=== PATIENT | male | born 1940 | race Caucasian/White ===

== ENCOUNTER → 2016-12-26 17:38 | Outpatient (CLI) | payer MEDICARE ==
[~2016-12-26 17:38] MED LIST: FLUTICASONE PRO16 GM NASAL; JANTOVEN7.5 MG PO; MULTIPLE VITAMI1 TA1 PO; PERCOCET 10/3251 TA1 PO
[2017-01-25 11:13] VITALS: BMI 30.6
== END | disposition home or self-care (01) ==
LOC: D.LABREF 17:38
DX: Z96.611 Presence of right artificial shoulder joint (principal); Z11.8 Encounter for screening for other infectious and parasitic diseases

== ENCOUNTER 2017-01-18 08:00 | Outpatient (CLI) | payer MEDICARE ==
[2017-01-11 12:20] LABS: BASOPHILS 0.5 % (0.0-2.0); EOSINOPHILS 2.6 % (0-7); HEMOGLOBIN 15.3 g/dL (13.5-17.5); LYMPHOCYTES 34.7 % (15-50); MCH 31.9 pg (26.0-34.0); MCV 93.9 fL (80.0-100.0); MONOCYTES 15.2 % (2-11); PLATELET COUNT 177 10x3/uL (130-400); RBC 4.79 10x6/uL (4.20-6.10); RDW 13.4 % (11.5-14.5); WBC 4.3 10x3/uL (4.8-10.8)
[2017-01-11 12:35] LABS: COLOR YELLOW (YELLOW)
[2017-01-11 12:36] LABS: APPEARANCE HAZY (CLEAR); APTT 37.7 SECONDS (22.8-39.4); BACTERIA MANY /hpf (NONE SEEN); BILIRUBIN NEGATIVE (NEGATIVE); EPITHELIAL CELLS NSEEN /hpf (0-5); GLUCOSE NEGATIVE (NEGATIVE); INR 2.89 (0.85-1.17); KETONE NEGATIVE (NEGATIVE); LEUKOCYTE ESTERASE 1+ (NEGATIVE); MUCUS <1+ /lpf (NONE SEEN); NITRITE POSITIVE (NEGATIVE); PROTEIN NEGATIVE (NEGATIVE); PROTIME 30.5 SECONDS (11.6-15.0); RED CELLS - URINE 0-5 /hpf (0-5); UROBILINOGEN NORMAL (NORMAL)
[2017-01-11 12:38] LABS: CALC OSMOLALITY 280 mosm/kg (275-300); CARBON DIOXIDE 31.4 mmol/L (21.0-32.0); CHLORIDE - SERUM 103 mmol/L (98-107); GLUCOSE 100 mg/dL (74-106); POTASSIUM - SERUM 4.3 mmol/L (3.5-5.1); SODIUM 140 mmol/L (136-145); UREA NITROGEN 18 mg/dL (7-18); eGFR NON AFRICAN AMERICAN 77 mL/min (90-120)
[~2017-01-18 08:00] MED LIST changes: -PERCOCET 10/3251 TA1 PO
--- NOTE | 2017-01-18 09:15 | NUR ---
0810 REPORTED TO KHANG SANCHEZ NURSE PEACTITIONER OF POS NITRITES REACE OF BLOOD AND URINALYSIS RESULTS ON 01/11/17 ORDERS RECEIVED FOR URINALYSIS MIDSTREAM AND PROTIME. 0915 MIDSTREAM URINALYSIS OBTAINED AND PROTIME AND WANTS RESULTS BEFORE PROCEDING TO GET PATIENT READY AND EPLAINED TRHIS TO PATIENT AND .
[2017-01-18 09:38] LABS: APPEARANCE SLT CLOUDY (CLEAR); BILIRUBIN NEGATIVE (NEGATIVE); COLOR YELLOW (YELLOW); GLUCOSE NEGATIVE (NEGATIVE); KETONE NEGATIVE (NEGATIVE); LEUKOCYTE ESTERASE 1+ (NEGATIVE); NITRITE POSITIVE (NEGATIVE); PROTEIN NEGATIVE (NEGATIVE); RED CELLS - URINE 0-5 /hpf (0-5); UROBILINOGEN NORMAL (NORMAL); WHITE CELLS - URINE >50 /hpf (0-5)
[2017-01-18 09:39] LABS: BACTERIA MODERATE /hpf (NONE SEEN); EPITHELIAL CELLS 0-5 /hpf (0-5)
[2017-01-18 09:47] LABS: APTT 24.4 SECONDS (22.8-39.4); INR 1.18 (0.85-1.17); PROTIME 14.9 SECONDS (11.6-15.0)
--- NOTE | 2017-01-18 09:52 | NUR ---
0950 REPORTED POSITIVE NITRITES IN URINE AND REPORTED PT INR TO KHANG STEVENS SUPERVISOR INTERNATIONAL RESERVATIONS SHE STATED SHE WILL SEND ORDER TO PHARMACY FOR BACTRIM DS EVERY 12 HOURS X [address] SALCIDO CALL BACK TO BE SURE PROCEDURE IS CANCELLED AND TO WAIT TO HERE FROM DR. SALCIDO .
--- NOTE | 2017-01-18 10:21 | NUR ---
[address] SALCIDO NITRITES POSITIVE. KHANG STEVENS PIPELINE EXECUTIVE CALLED IN BACTRIM DS EVERY 12 HOURS X 5 DAYS TO [facility] ON [address] SHE GAVE ME INSTRUCTIONS TO TAKE COUMADIN TODAY AND ON 01/19/17 AND ON 01/20/17 THEN STOP COUMADIN ON 01/21/17Sunday. KHANG STEVENS STATED SURGERY TO BE ON Sunday01/25/17 AND OFFICE WILL CALL FOR TIME PER KHANG STEVENS PIPELINE EXECUTIVE AND ALSO STATED THAT [facility] WILL ALSO CALL HIM. GAVE PATIENT THIS INFORMATION AND PATIENT UPSET ABOUT LABS AND REPORTED THIS TO DA KEY R.N.1025 INSTRUCTED TO CALL OFFICE SUNDAY IF DOES NOT HERE FROM OFFICE BY THEN FOR TIME OF SURGERY AND VERBALLY UNDERSTANDS.
== END 2017-01-18 23:59 | disposition home or self-care (01) ==
LOC: D.PAN 08:00 → D.SDCHOLD 10:30 → EDSTATUS 16:45 → D.PAN 23:59
PROVIDERS: Anesthesiology; Orthopaedic Surgery
DX: Z53.09 Procedure and treatment not carried out because of other contraindication (principal)

== ENCOUNTER 2017-01-25 05:37 | Inpatient (IN) | payer MEDICARE ==
[~2017-01-25] VITALS: Ht 182.9 cm; Wt 102.3 kg
[2017-01-25] VITALS (14 sets, daily range): BP systolic 114–166; BP diastolic 73–99; Ht 182.9 cm; Wt 102.3 kg
[2017-01-25 06:54] LABS: BASOPHILS 0.2 % (0.0-2.0); HEMATOCRIT 43.2 % (42.0-54.0); HEMOGLOBIN 14.4 g/dL (13.5-17.5); LYMPHOCYTES 35.9 % (15-50); MCH 31.3 pg (26.0-34.0); MCHC 33.3 g/dL (31.0-37.0); MCV 93.9 fL (80.0-100.0); MONOCYTES 13.7 % (2-11); NEUTROPHILS 48.2 % (40-80); PLATELET COUNT 207 10x3/uL (130-400); RDW 13.3 % (11.5-14.5)
[2017-01-25 07:05] LABS: APPEARANCE CLEAR (CLEAR); BACTERIA FEW /hpf (NONE SEEN); BILIRUBIN NEGATIVE (NEGATIVE); COLOR YELLOW (YELLOW); EPITHELIAL CELLS OCC /hpf (0-5); GLUCOSE NEGATIVE (NEGATIVE); KETONE NEGATIVE (NEGATIVE); LEUKOCYTE ESTERASE TRACE (NEGATIVE); NITRITE NEGATIVE (NEGATIVE); PROTEIN TRACE mg/dL (NEGATIVE); RED CELLS - URINE OCC /hpf (0-5); SPECIFIC GRAVITY 1.025 (1.005-1.020); UROBILINOGEN NORMAL (NORMAL); WHITE CELLS - URINE 0-5 /hpf (0-5)
[2017-01-25 07:08] LABS: CALC OSMOLALITY 280 mosm/kg (275-300); CALCIUM 8.5 mg/dL (8.5-10.1); CARBON DIOXIDE 27.7 mmol/L (21.0-32.0); CHLORIDE - SERUM 105 mmol/L (98-107); GLUCOSE 106 mg/dL (74-106); POTASSIUM - SERUM 4.9 mmol/L (3.5-5.1); SODIUM 140 mmol/L (136-145); UREA NITROGEN 18 mg/dL (7-18); eGFR NON AFRICAN AMERICAN 77 mL/min (90-120)
[2017-01-25 07:26] LABS: APTT 24.8 SECONDS (22.8-39.4); INR 1.17 (0.85-1.17); PROTIME 14.8 SECONDS (11.6-15.0)
--- NOTE | 2017-01-25 12:07 | NUR ---
Patient Name: JORGITO PRITCHARD Admission Status: Elective Accout number: [id number] Admission Date: 01-25-2017 : 1940 Admission Diagnosis: Attending: QUOC Current LOS: 1 Anticipated DC Date: 01-26-2017 Planned Disposition: Home Primary Insurance: [employer] CHOICE PPO MCR ADVANT Discharge Planning Comments: CM MET WITH PATIENTS (ZEKE) REGARDING D/C NEEDS AND PLANS. PATIENT WAS SLEEPING (OUT OF SURGERY). SPOUSE STATED SHE OR THEIR SON (IGNACIO MIRZA) WILL DRIVE PATIENT HOME AT DISCHARGE. THERE IS ONLY A STEP UP TO ENTER THEIR HOME AND NO STAIRS INSIDE PER . PATIENT IS INDEPENDENT WITH NO DME AT HOME. PATIENTS PCP IS DR. CASSIDY AND PHARMACY IS [facility]. ON [address] PATIENTS STATED HE HAS NEVER HAD HOME HEALTH AND THEY WOULD NOT NEED IT AT DISCHARGE. CM WILL CONTINUE TO FOLLOW PATIENT WITH D/C NEEDS AND PLANS. PCP DR. CASSIDY [facility]. [address] [phone] ZEKE () [phone] Head Grower: Daphney Conti How many steps to enter\exit or inside your home? 1 STEP UP 0 * PCP DR. CASSIDY 0 * Pharmacy [facility] [address] 0 * Preadmission Environment Home with Family 0 * ADLs Independent 0 * Equipment None 0 * List name and contact numbers for known caregivers / representatives who currently or will assist patient after discharge: ZEKE () [phone] * Community resources currently utilized None 0 * Additional services required to return to the preadmission environment? Yes 0 * Can the patient safely return to the preadmission environment? Yes 0 * Has this patient been hospitalized within the prior 30 days at any hospital? No 0 Grand Total: 0
[2017-01-26] VITALS: BP 131/82
[2017-01-26 05:00] VITALS: BP 120/86
[2017-01-26 05:51] LABS: HEMATOCRIT 37.8 % (42.0-54.0); HEMOGLOBIN 12.6 g/dL (13.5-17.5); MCH 31.3 pg (26.0-34.0); MCHC 33.3 g/dL (31.0-37.0); MCV 93.8 fL (80.0-100.0); MEAN PLATELET VOLUME 9.8 fL (7.4-10.4); RBC 4.03 10x6/uL (4.20-6.10); RDW 13.1 % (11.5-14.5)
[2017-01-26 05:54] LABS: WBC 9.2 10x3/uL (4.8-10.8)
--- NOTE | 2017-01-26 07:30 | NUR ---
RECIEVED PT DURING WALKING ROUNDS. PT RESTING IN BED WITH NO COMPLAINTS OF PAIN OR DISCOMFORT AT THIS TIME. ASSESSMENT DONE PER FLOWSHEET. BED IN LOW POSITION AND CALL LIGHT WITHIN REACH. WILL CONTINUE TO [facility].
[2017-01-26] MEDS ORDERED: PERCOCET 10/3251 TA1 PO (09:16)
--- NOTE | 2017-01-26 09:42 | NUR ---
01/26/2017 9:42 DCP: Discharge Planning Patient Name: JORGITO Fink PAGE Encounter No: [id number] : 1940 Primary Insurance: [employer] CHOICE PPO MCR ADVANT Anticipated DC Date: 01-26-2017 Planned Disposition: Home External Planned Provider: : DCP follow-up note: DC order rec'd. Patient in agreement with discharge plan. No changes to plan. Case management will follow and assist as needed. Nuris Diaz
--- NOTE | 2017-01-26 10:30 | NUR ---
UP AT BEDSIDE WASHING FACE AT SINK. GAIT STEADY. DENIES NEEDS OR PAIN. CL IN REACH. ANTICIPATING DC HOME TODAY.
--- NOTE | 2017-01-26 12:22 | NUR ---
IV REMOVED CATH INTACT. DISCHARGE INSTRUCTIONS GIVEN AND PT DISCHARGED TO HOME VIA WHEELCHAIR WITH A FAMILY MEMBER.
--- NOTE | 2017-01-29 10:12 | OP ---
PATIENT NAME: JORGITO PRITCHARD MEDICAL RECORD: [id number] :[birth year] LOCATION:[id number] ADMISSION DATE:01/25/17 SURGEON: DILLON SALCIDO MD DATE OF OPERATION: 01/25/2017 Orthopedic Surgery Operative Note PREOPERATIVE DIAGNOSIS: Chronic rotator cuff arthropathy of the right shoulder. POSTOPERATIVE DIAGNOSIS: Chronic rotator cuff arthropathy of the right shoulder. PROCEDURE: Reverse total shoulder arthroplasty of the right shoulder. SURGEON: Dillon Salcido MD ANESTHESIA: General. INTRAOPERATIVE COMPLICATIONS: None. SUMMARY OF PATHOLOGIC FINDINGS: The patient had chronic rotator cuff arthropathy consistent with the preoperative MRI and radiographs. IMPLANTS USED: Arthrex reverse total shoulder arthroplasty system, 36 medium baseplate, 36 glenosphere, +6 polyethylene, 36 metaglene and a size 12 stem. OPERATIVE SUMMARY IN DETAIL: After obtaining the appropriate preoperative orthopedic surgery consents as well as anesthetic consultation, evaluation and clearance, the patient was brought to the operating room and placed on the operating table in the supine position. After adequate general laryngeal mask airway anesthesia was administered, the patient was placed in the beach chair position. All pressure points were well padded. He was held firmly to the operating table using the vacuum pack suction system. Right upper extremity and shoulder were prepped and draped in routine sterile fashion. The arm was held in Trimano arm holding device. Incision was made for deltopectoral approach, taken down to the level of the clavipectoral fascia which was incised. The conjoint tendon was retracted medially gently and the deltoid was retracted over the humeral head using the brown retractor. Subscapularis anteriorly remained attached. This was taken down and reflected. The humeral head was then dislocated anteriorly through the patient's incision. Humeral head cut was made using the humeral head cutting guide at approximately 30 degrees of retroversion. Having completed this, the cut protector was placed on the surface of the metaphyseal bone of the proximal humerus and the glenoid was exposed. Circumferential labrectomy was followed by using the medium guide to place a pin at 0 degrees of retroversion into the low center of the humeral head. Serial and sequential reaming was followed by placement of the baseplate. After the baseplate was firmly in place, peripheral reamers were utilized to clear the way for the glenosphere. The glenosphere was then put into place and tamped into place on the Norton taper and checked for stability. The humeral head was then brought forth through the incision again. The humeral cutting guide was removed. Serial and sequential reaming was followed by proximal metaphyseal reaming for the size 39 metaglene. Final component was put together on the backtable. It was then implanted. Good fit and fill was achieved. Trial was undertaken with the trial polyethylene inserts and we felt that a size 6+ - C that is constrained liner was the most appropriate for this patient. The OPERATIVE REPORT [id number] JORGITO PRITCHARD final polyethylene was put into place. The shoulder was relocated and taken through range of motion and found to be stable in all planes. Wound was copiously irrigated. Having completed this, the subscapularis was reapproximated to the lesser tuberosity using #2 Ethibond. This was followed by #1 Vicryl closure of the deltopectoral incision and skin emma. Sterile dressings were applied. The patient was awakened, taken to recovery room in stable condition. All final needle and sponge counts were correct. TRANSINT:[id number] Voice Confirmation ID: [id number] DOCUMENT ID: [id number] OMARI AGUIRRE, DILLON BARBOUR at 1012 CC: [id number] DICTATION DATE: 01/25/17 1025 MANAGER DEMAND: 01/25/17 1300 DIS IN 01/26/17 [facility] [address] [place] [address]
== END 2017-01-26 12:23 | disposition home or self-care (01) | DRG 483 ==
LOC: D.MS 05:37 → D.SDCHOLD 05:37 → D.MS 08:47 → D.SDCHOLD 09:00 → D.MS 01-26 12:23
PROVIDERS: ADMIT Orthopaedic Surgery
PROC: 0RRJ00Z Replacement of Right Shoulder Joint with Reverse Ball and Socket Synthetic Substitute, Open Approach (ICD-10-PCS; principal; 2017-01-25 08:15)
DX: M75.101 Unspecified rotator cuff tear or rupture of right shoulder, not specified as traumatic (principal)